=== PATIENT | male | born 1985 | race Caucasian/White ===

== ENCOUNTER → 2016-02-11 | Outpatient (CLI) | payer BC | LOC: BHSO 15:59 | DX: F41.1 Generalized anxiety disorder (principal) ==

== ENCOUNTER 2016-03-22 10:19 | Outpatient (RCR) | payer OTHER | END 2016-06-20 | LOC: WSOH | DX: S90.221A Contusion of right lesser toe(s) with damage to nail, initial encounter (principal); W20.8XXA Other cause of strike by thrown, projected or falling object, initial encounter; Y99.0 Civilian activity done for income or pay ==

== ENCOUNTER → 2016-06-13 | Outpatient (CLI) | payer BC | LOC: BHSO 14:44 | DX: F41.1 Generalized anxiety disorder (principal) ==

== ENCOUNTER → 2016-12-12 | Outpatient (CLI) | payer BC, OTHER | LOC: BHSO 15:20 | DX: F41.1 Generalized anxiety disorder (principal) ==

== ENCOUNTER → 2017-03-31 | Outpatient (CLI) | payer BC, OTHER | LOC: BHSO 15:45 | DX: F90.0 Attention-deficit hyperactivity disorder, predominantly inattentive type (principal) | CPT/HCPCS: G0463 ==

== ENCOUNTER → 2017-08-29 | Outpatient (CLI) | payer BC | LOC: BHSO 16:02 | DX: F90.0 Attention-deficit hyperactivity disorder, predominantly inattentive type (principal) ==

== ENCOUNTER → 2018-03-08 | Outpatient (CLI) | payer BC | LOC: BHSO 10:23 | DX: F90.0 Attention-deficit hyperactivity disorder, predominantly inattentive type (principal) | CPT/HCPCS: G0463 ==

== ENCOUNTER → 2018-08-31 | Outpatient (CLI) | payer BC | LOC: BHSO 10:16 | DX: F90.0 Attention-deficit hyperactivity disorder, predominantly inattentive type (principal) | CPT/HCPCS: G0463 ==

== ENCOUNTER → 2019-02-28 | Outpatient (CLI) | payer BC | LOC: BHSO 10:02 | DX: F90.0 Attention-deficit hyperactivity disorder, predominantly inattentive type (principal) | CPT/HCPCS: G0463 ==

== ENCOUNTER → 2019-08-27 | Outpatient (CLI) | payer SELFPAY | LOC: BHSO 08:40 | DX: F90.0 Attention-deficit hyperactivity disorder, predominantly inattentive type (principal) | CPT/HCPCS: G0463 ==